=== PATIENT | female | born 1975 | race Caucasian/White ===

== ENCOUNTER 2016-10-31 09:48 | Emergency (ER) | payer MEDICAID ==
[~2016-10-31] VITALS: Wt 77.5 kg
[~2016-10-31 09:48] MED LIST: CALC600T5 PO; IRON45TA2 PO; PREN1TAB17 PO
[2016-10-31] MEDS ORDERED: ALBUTEROL 0.083% (NEB) 2.5 MG/3 ML AMP HHN STA (10:11)
--- NOTE | 2016-10-31 10:19 | ERD ---
ER Documentation Chief Complaint Date/Time DATE: 10/31/16 TIME: 10:16 Chief Complaint COUGH, CONGESTION, SOB, PT 14 WKS PG, NO VB HPI This is a 40-year-old female presents to the ER complaining of cough, chest congestion, stuffy nose and sore throat for the last 3 days. Patient states that whenever she coughs she experiences chest, back and abdominal pain. Patient states that over the last 2 nights she has had increased wheezing at night and has felt short of breath. Patient denies any leg pain, redness, swelling. She denies any fevers or chills. Patient is currently 14 weeks , she did go to her [facility] and she was given Robitussin and Benadryl which has not been helping her symptoms. Patient denies any pelvic pain, vaginal bleeding or vaginal discharge. Patient denies any urinary frequency, dysuria or hematuria. Patient however is worried about the baby, because she states that every time she coughs she has generalized abdominal pain. ROS 12 point review of systems was done, all negative except per HPI. Medications Home Meds Active Scripts Dextromethorphan Hb-Promethazine Hcl (Promethazine DM Syrup) 473 Ml Syrup, 10 ML PO Q6H Y for COUGH, #4 OZ Prov:LEONA YAN 10/31/16 Amoxicillin* (Amoxicillin*) 500 Mg Cap, 500 MG PO TID for 7 Days, CAP Prov:LEONA YAN Moe 10/31/16 Reported Medications Calcium Carbonate (CALCIUM) 600 Mg Tablet, 600 MG PO DAILY 10/08/12 Iron,Carbonyl (IRON) 45 Mg Tablet, 45 MG PO DAILY 10/08/12 Vit-Iron Fumarate-FA ( Tablet) 1 Each Tablet, 1 EACH PO DAILY 10/08/12 Allergies Allergies: Coded Allergies: No Known Allergy (Verified , 12/19/08) PMhx/Soc History of Surgery: No Anesthesia Reaction: No Hx Neurological Disorder: No Hx Respiratory Disorders: No Hx Cardiac Disorders: No Hx Psychiatric Problems: No Hx Miscellaneous Medical Probl: No Hx Alcohol Use: No Hx Substance Use: No Hx Tobacco Use: No Physical Exam Vitals Vital Signs Date Time Temp Pulse Resp B/P Pulse Ox O2 Delivery O2 Flow Rate FiO2 10/31/16 11:17 91 18 98 21 10/31/16 09:52 97.0 91 18 116/67 98 Physical Exam GENERAL: The patient is well-developed, well-nourished, in no acute distress. NECK: Cervical spine is non tender with no step off. Supple, no nuchal rigidity HEENT: Atraumatic. Pupils equal, round and reactive to light. Extraocular muscles are grossly intact. Conjunctivae pink, no discharge. Bilateral tympanic membranes are clear with no evidence of erythema, effusion or dulling of the light reflex. Tonsilar erythema with no exudates or uvular deviation. Clear rhinorrhea. RESPIRATORY: Expiratory wheezes in all lung garcia. No rales rhonchi or crackles. HEART: Regular rate and rhythm. No murmurs, clicks, rubs or gallops. EXTREMITIES: No clubbing or cyanosis. Full range of motion. Grossly neurovascularly intact. NEUROLOGIC: Alert and oriented. Cranial nerves II through XII are intact. SKIN: There is no rash. The skin is warm and dry. Results 24 hrs Current Medications Medications (Trade) Dose Ordered Sig/Tano Route PRN Reason Start Time Stop Time Status Last Admin Dose Admin Albuterol (Proventil 0.083% (Neb)) 5 mg ONCE STAT HHN 10/31/16 10:11 10/31/16 10:15 DC 10/31/16 11:16 [place] [id number] Radiology Main Line: [phone] DIAGNOSTIC IMAGING REPORT Patient: PENG PHILIPPE : 1975 Age: 40 Sex: F MR #: [id number] DOS: 10/31/16 0000 Ordering MD: LEONA YAN PA-C Location: [facility] Room/Bed: PROCEDURE: US OB. CLINICAL INDICATION: Size and dates , shortness of breath TECHNIQUE: Multiple sonographic images of the pelvis and gravid uterus were obtained. The images were reviewed on a PACS workstation. COMPARISON: No prior studies are available for comparison. FINDINGS: The cervix is closed with a length of 4.2 cm. There is a single viable intrauterine gestation. Cardiac activity is present with 148 beats per minute. There is a vertex presentation. The placenta is anterior. There is no evidence for an abruption or placenta previa. MVP = 5.1 cm. Measurements were made in order to determine age. The results are as follows: BPD = 2.9 cm HC = 10.4 cm AC = 8.9 cm FL = 1.4 cm Estimated gestational age of approximately 14 weeks and 6 days based on ultrasound measurements. Clinical age: 15 weeks and 0 days. The estimated date of delivery is 04/25/17, based on ultrasound measurements. The EFW = 104 g, 19%, based on LMP age. The ovaries were not visualized. The adnexa are unremarkable. RPTAT: AA IMPRESSION: Single viable intrauterine gestation of approximately 14 weeks and 6 days based on ultrasound measurements. .Conner Giron MD, MD Date Time Electronically viewed and signed by .Conner Giron MD, MD on 10/31/2016 11: 08 .S/ CC: LEONA YAN Procedures/MDM EKG was done [address] elevation or T-wave inversion this EKG was signed by Dr. Mariano Patient is given a nebulizing treatment in the ER with albuterol, I did not give patient steroids as she is . I spoke with patient regarding albuterol category C, and patient wishes to proceed. Upon reexamination patient wheezing was improved and she felt significantly better. Differential diagnosis includes but is not limited to; Viral URI, allergic rhinitis, bronchitis, pertussis,pneumonia. Will be treated for possible bacterial bronchitis as her symptoms are worsening. Clinical suspicion for pneumonia is low as patient appears well, is not hypoxic or in any respiratory distress. Additionally, patients physical examination is benign. Plan was discussed with patient they understand and agree. Patient needs to follow up with PCP in 1-2 days or return to ER sooner if symptoms worsen. Departure Diagnosis: Primary Impression: Upper respiratory infection Condition: Stable LEONA YAN Oct 31, 2016 10:19
--- NOTE | 2016-10-31 11:08 | RADRPT ---
PROCEDURE: US OB. CLINICAL INDICATION: Size and dates , shortness of breath TECHNIQUE: Multiple sonographic images of the pelvis and gravid uterus were obtained. The images were reviewed on a PACS workstation. COMPARISON: No prior studies are available for comparison. FINDINGS: The cervix is closed with a length of 4.2 cm. There is a single viable intrauterine gestation. Cardiac activity is present with 148 beats per min jaime. There is a vertex presentation. The placenta is anterior. There is no evidence for an abruption or placenta previa. MVP = 5.1 cm. Measurements were made in order to determine age. The results are as follows: BPD =2.9 cm HC =10.4 cm AC =8.9 cm FL =1.4 cm Estimated gestational age of approximately 14 weeks and 6 days based on ultrasound measurements. Clinical age: 15 weeks and 0 days. The estimated date of delivery is 04/25/17, based on ultrasound measurements. The EFW = 104 g, 19%, based on LMP age. The ovaries were not visualized. The adnexa are unremarkable. RPTAT: AA IMPRESSION: Single viable intrauterine gestation of approximately 14 weeks and 6 days based on ultrasound measu rements. .Conner Giron MD, Date Time Electronically viewed and signed by .Conner Giron MD, on 10/31/2016 11:08 .S/
[2016-10-31] MEDS ORDERED: AMO500 PO (11:31)
[2016-10-31] MEDS ORDERED: D-ME473S18 PO (11:32)
[2016-10-31 11:57] VITALS: BP 138/77; PULSE 86; RESP 20; TEMP 98.3
== END 2016-10-31 12:00 | disposition home or self-care (01) ==
LOC: FTE 09:48
DX: O99.512 Diseases of the respiratory system complicating pregnancy, second trimester (principal); J06.9 Acute upper respiratory infection, unspecified; R06.02 Shortness of breath; Z3A.14 14 weeks gestation of pregnancy
CPT/HCPCS: 76805; 93005; 94664; Z7502; Z7610

== ENCOUNTER 2017-01-14 17:13 | Outpatient (CLI) | payer MEDICAID ==
[~2017-01-14] VITALS: Ht 160 cm; Wt 85.4 kg
[~2017-01-14 17:13] MED LIST changes: +AMOX500C2 PO; +D-ME473S18 PO
[2017-01-14 17:35] VITALS: BP 109/54; PULSE 77; RESP 16; Ht 160 cm; Wt 85.4 kg
[2017-01-14] MEDS ORDERED: ACETAMINOPHEN 500 MG TAB PO STA (18:12)
--- NOTE | 2017-01-14 18:57 | RADRPT ---
AMENDMENT: 01/14/2017 7:38:44 PM Wagner Mead M.d The cervix is closed and measures 4.9 cm in length. PROCEDURE: OB ultrasound CLINICAL INDICATION: Vaginal spotting TECHNIQUE: Multiple transverse and longitudinal OB images of the pelvis were obtained. The images were reviewed on a high-resolution PACS workstation. COMPARISON: None FINDINGS: A single live intrauterine is seen. The presentation is for age. The placenta is grade 1 and right anterior in location. No evidence of placenta abruption or previa is seen. The heart rate is 135 beats per minute. The amniotic fluid index is 18 cm. movement 2 tone 2 breathing 2 Amniotic fluid 2 IMPRESSION: Biophysical profile of 10/21. RPTAT: HPNM Physician Jovanna Date Time Electronically viewed and signed by Physician Jovanna on 01/14/2017 19:38 /
--- NOTE | 2017-01-15 01:49 | TRIAGE ---
OB Triage Datetime Report Generated by CPN: 01/15/2017 01:49 Datetime: 01/14/2017 21:39 Stage of : OB Triage Labor Evaluation Frequency: None noted or palpated. Pt denies. Monitor Mode: External Resting Tone [place]: Relaxed Heart Rate FHR Baseline Rate: 135 Monitor Mode: External US FHR Baseline Changes: No Baseline Change Variability: Moderate 6-25 bpm Accelerations: 15X15 Decelerations: None Category: Category I Datetime: 01/14/2017 21:00 Stage of : OB Triage Labor Evaluation Frequency: None noted or palpated. Pt denies. Monitor Mode: External Resting Tone [place]: Relaxed Heart Rate FHR Baseline Rate: 135 Monitor Mode: External US Variability: Moderate 6-25 bpm Accelerations: 15X15 Decelerations: Variable Category: Category II Comments: Appropriate for gestational age Datetime: 01/14/2017 20:00 Stage of : OB Triage Labor Evaluation Frequency: None noted or palpated. Pt denies. Monitor Mode: External Resting Tone [place]: Relaxed Heart Rate FHR Baseline Rate: 140 Monitor Mode: External US Variability: Moderate 6-25 bpm Accelerations: 10X10 Decelerations: Variable Category: Category I Datetime: 01/14/2017 19:52 Stage of : OB Triage Assessment Type: Triage Maternal Assessment Level of Consciousness: Fully Conscious DTR's/Clonus: DTRs 2+; No Clonus Headache: Denies Blurred Vision: No Respiratory Effort: Unlabored; Regular Rhythm; Equal Expansion Breath Sounds, Left: Clear and Equal Breath Sounds, Right: Clear and Equal Nausea/Vomiting: Denies RUQ Epigastric Pain: Denies Lower Extremities Edema: None Degree: None Upper Extremities Edema: None Degree: None Facial Edema: None Fall Risk Assessment History of Falling: (0) No Secondary Diagnosis: (0) No Ambulatory Aid: (0) Bedrest/Nurse Assist IV Therapy: (0) No Gait: (0) Normal/Bedrest/Immobile Mental Status: (0) Oriented to Own Ability Fall Score: 0 Fall Risk Score Definition: No Risk: No action required Pain Assessment Pain Scale: 0 Pain Presence: None/Denies Pain Type: N/A Datetime: 01/14/2017 19:07 Stage of : OB Triage Datetime: 01/14/2017 18:56 Pattern: Normal: <= 5 Contractions in 10 Minutes Resting Tone [place]: Relaxed Contraction Comments: no uc Heart Rate FHR Baseline Rate: 145 Variability: Moderate 6-25 bpm Datetime: 01/14/2017 18:01 Pattern: Normal: <= 5 Contractions in 10 Minutes Resting Tone [place]: Relaxed Contraction Comments: no uc Heart Rate FHR Baseline Rate: 145 Variability: Moderate 6-25 bpm Accelerations: 15X15 Decelerations: None Category: Category I Pain Presence: None/Denies Pain Type: N/A Datetime: 01/14/2017 17:59 Vaginal Exam Dilatation (cms): 0.0 Exam By: wliu Datetime: 01/14/2017 17:21 Time of Arrival: 01/14/2017 17:00 EGA: 25.5 Arrived By: Wheelchair Arrived From: Home Chief Complaint: Pt. came to ob triage c/o spotting and buring when urinating after intercourse, d padmaja srom, deny uc Movement: Present Contractions: Denies/Absent Rupture of Membranes: Denies Vaginal Bleeding: Small (Annotations: Data stored by CPN on behalf of user) Vaginal Discharge: Denies Recent Sexual Intercouse: Yes Abdominal Trauma: Not Applicable Patient Complaints: Other Time Provider Notified: 01/14/2017 17:35 Provider Notified: Initial Plan: R/O Placenta previa, r/o ptl
--- NOTE | 2017-01-15 06:21 | PN ---
Triage Information Date/Time 01/15/2017 Reason for visit: Postcoital spotting Weeks of Gestation 25 weeks and 5/7 /Para Diabetes: none Hypertention: none Additional information 41-year-old with IUP at 25 weeks and 5 days with complaint of postcoital spotting. Denies any leaking of fluid, or decreased movement. Patient reports burning sensation with urination as well. Objective Vital Signs Date Time Temp Pulse Resp B/P Pulse Ox O2 Delivery O2 Flow Rate FiO2 01/14/17 17:35 98.0 77 16 109/54 Heart Rate: 130's Contractions: None Exam Speculum examination: Cervix appears closed and long. No blood in the mouth. Abdomen: Gravid, nontender, no rebound tenderness, no guarding rigidity Fundal height consistent with gestational age NST is appropriate for gestational age No congestion the monitoring Ultrasound no evidence of abruption Rh+ UA negative Results/Medications Imaging Results AMENDMENT: 01/14/2017 7:38:44 PM Wagner Mead M.d The cervix is closed and measures 4.9 cm in length. PROCEDURE: OB ultrasound CLINICAL INDICATION: Vaginal spotting TECHNIQUE: Multiple transverse and longitudinal OB images of the pelvis were obtained. The images were reviewed on a high-resolution PACS workstation. COMPARISON: None FINDINGS: A single live intrauterine is seen. The presentation is for age. The placenta is grade 1 and right anterior in location. No evidence of placenta abruption or previa is seen. The heart rate is 135 beats per minute. The amniotic fluid index is 18 cm. movement 2 tone 2 breathing 2 Amniotic fluid 2 IMPRESSION: Biophysical profile of 8. RPTAT: HPNM Physician Jovanna Date Disposition: Discharge Assessment/Plan labor precautions and kick count and follow-up with primary OB within 24-48 hours discussed with the patient next Postcoital spotting with no evidence of abruption resolved. RH positive Patient verbalized understanding all above discussion and agreed to comply with instructions. IBAN MCFARLANE MD Jan 15, 2017 06:21
== END 2017-01-14 21:54 | disposition home or self-care (01) ==
LOC: OBT 17:13 → L-D 17:14 → OBT 21:54
PROVIDERS: ATTEND Obstetrics & Gynecology
DX: O46.8X2 Other antepartum hemorrhage, second trimester (principal); O26.892 Other specified pregnancy related conditions, second trimester; R30.0 Dysuria; Z3A.25 25 weeks gestation of pregnancy
CPT/HCPCS: 76817; 76818; 86900; 86901; Z7500; G0463

== ENCOUNTER 2017-04-17 18:48 | Inpatient (IN) | END 2017-04-20 18:29 | disposition home or self-care (01) | DRG 775 ==

== ENCOUNTER 2017-04-24 23:43 | Emergency (ER) | END 2017-04-25 05:51 | disposition home or self-care (01) ==

== ENCOUNTER 2018-03-25 20:54 | Emergency (ER) | payer MEDICAID ==
[~2018-03-25] VITALS: Wt 77.4 kg
[~2018-03-25 20:54] MED LIST changes: +ALBU18HF INHALATION; -AMOX500C2 PO; +AZIT250T PO; +CETI10CA PO; -D-ME473S18 PO; +FLUT9.9S NASAL; +PRED20TA PO
[2018-03-26] MEDS ORDERED: KETOROLAC 60 MG INJ IM STA (00:14)
[2018-03-26] MEDS ORDERED: LIDOCAINE 1% (MDV) 20 ML INJ SC ONE (01:00)
[2018-03-26 01:47] VITALS: BP 117/59; PULSE 68; RESP 18
--- NOTE | 2018-03-26 01:54 | ERD ---
ER Documentation Chief Complaint Chief Complaint HIT IN UPPER BACK WITH BALL; C/O PAIN IN AREA HPI 42-year-old female presents with a red, erythematous, fluctuant mass on her upper back. Tender to palpation. Patient states she noticed it starting 1 week ago. Denies fevers, discharge. Taking ibuprofen. Denies past medical history. Denies allergies. Denies medications. Denies surgeries. Denies alcohol, tobacco, drug use. Up to date on vaccines. ROS All systems reviewed and are negative except as per history of present illness. Medications Home Meds Active Scripts Clindamycin Hcl* (Clindamycin Hcl*) 300 Mg Capsule, 300 MG PO QID for abscess for 7 Days, #28 CAP Prov:ROGELIO ANDREA 03/26/18 Hydrocodone/Acetaminophen ([place] 5-325 Tablet) 1 Each Tablet, 1 TAB PO Q6H PRN for PAIN, #10 TAB Prov:ROGELIO ANDREA 03/26/18 PMhx/Soc Medical and Surgical Hx: pt denies Medical Hx, pt denies Surgical Hx Hx Alcohol Use: No Hx Substance Use: No Hx Tobacco Use: No Smoking Status: Never smoker FmHx Family History: No diabetes, No coronary disease, No other Physical Exam Vitals Vital Signs Date Temp Pulse Resp B/P (MAP) Pulse Ox O2 O2 Flow FiO2 Time Delivery Rate 03/26/18 99.1 68 18 117/59 98 Room Air 01:47 (78) 03/25/18 96.9 74 18 119/59 99 20:59 (79) Physical Exam Const: No acute distress Resp: Clear to auscultation bilaterally Cardio: Regular rate and rhythm, no murmurs Skin: Erythematous, fluctuant mass approximately 5 cm in diameter with overlying cellulitis located on upper back. TTP. Neur: Awake and alert Psych: Normal Mood and Affect Results 24 hrs Laboratory Tests Test 03/26/18 00:13 POC Beta HCG, Qualitative NEGATIVE Current Medications Medications Dose Sig/Tano Start Time Status Last (Trade) Ordered Route PRN Stop Time Admin Dose Reason Admin Ketorolac 60 mg ONCE STAT 03/26/18 DC 03/26/18 Tromethamine IM 00:14 00:24 (Toradol) 03/26/18 00:15 Lidocaine 20 ml ONCE ONCE 03/26/18 DC (Xylocaine SC 01:00 1% (Mdv) 20 03/26/18 01:01 ml) Procedures/MDM ER Course: Abscess Incision and Drainage with irrigation by me: Location: Upper back Anesthesia: Cleansed with betadine and injected local 1% Lidocaine. Patient given toradol to help with pain. Morphine unable to be administered because patient is driving home. Technique: Irrigated. Disrupted loculations w/ instrumentation Packing: Iodoform gauze Complications: Neurovascularly intact post procedure Dressing applied to top of the wound. 48 hour wound check. Scar minimization instructions given. MDM: 42-year-old female presents with a red, erythematous, fluctuant mass on her upper back. Tender to palpation. Patient states she noticed it starting 1 week ago. Denies fevers, discharge. Taking ibuprofen. No lymphatic streaking. Abscess was incised and drained. Due to concern of overlying cellulitis and patient's desire to breast-feed, patient was given Rx for clindamycin. Patient given [place] for pain with strict precautions to either not breast-feed or pump and dump after taking [place] and before feeding child. Patient understood and agreed to these conditions. Patient to return in 2 days for wound check. Patient discharged with strict ER precautions. Patient advised to follow up with PMD. All questions answered at discharge. Departure Diagnosis: Primary Impression: Abscess Condition: Stable Patient Instructions: Abscess, Incision And Drainage Referrals: COUNTS INCLUDE 234 BEDS AT THE [facility] YOU HAVE RECEIVED A MEDICAL SCREENING EXAM AND THE RESULTS INDICATE THAT YOU DO NOT HAVE A CONDITION THAT REQUIRES URGENT TREATMENT IN THE EMERGENCY DEPARTMENT. FURTHER EVALUATION AND TREATMENT OF YOUR CONDITION CAN WAIT UNTIL YOU ARE SEEN IN YOUR DOCTORS OFFICE WITHIN THE NEXT 1-2 DAYS. IT IS YOUR RESPONSIBILITY TO MAKE AN APPOINTMENT FOR FOLOW-UP CARE. IF YOU HAVE A PRIMARY DOCTOR --you should call your primary doctor and schedule an appointment IF YOU DO NOT HAVE A PRIMARY DOCTOR YOU CAN CALL OUR PHYSICIAN REFERRAL HOTLINE AT IF YOU CAN NOT AFFORD TO SEE A PHYSICIAN YOU CAN CHOSE FROM THE FOLLOWING [facility] [address] [facility] [address] [facility] [address] [facility] [address] [facility] [address] [facility]. [facility] [address] Additional Instructions: Return to this facility in 2 DAYS for a follow-up exam.Return sooner if your condition worsens. ROGELIO ANDREA Mar 26, 2018 01:54
== END 2018-03-26 02:10 | disposition home or self-care (01) ==
LOC: FTE 20:54 → MERGE 20:54 → FTE 03-26 02:10
DX: L02.212 Cutaneous abscess of back [any part, except buttock and flank] (principal)
CPT/HCPCS: 10060; 81025; 96372; J1885; Z7502; Z7610